=== PATIENT | male | born 1960 | race African-American/Black ===

== ENCOUNTER 2020-03-17 05:55 | Emergency (ER) | payer BC ==
[~2020-03-17] VITALS: Ht 190.5 cm; Wt 77.0 kg
[2020-03-17] MEDS ORDERED: KETOROLAC 60MG/2ML VIAL IM ONE (06:30)
[2020-03-17 08:02] VITALS: BP 148/86
== END 2020-03-17 08:14 | disposition home or self-care (01) ==
LOC: ER 05:55
DX: M54.6 Pain in thoracic spine (principal); M25.511 Pain in right shoulder; M25.512 Pain in left shoulder; V49.59XA Passenger injured in collision with other motor vehicles in traffic accident, initial encounter; Y93.89 Activity, other specified; Y92.89 Other specified places as the place of occurrence of the external cause; Y99.8 Other external cause status
CPT/HCPCS: 70450; 72070; 72125; 96372; 99285; J1885